=== PATIENT | female | born 1950 | race Caucasian/White ===

== ENCOUNTER 2023-06-21 08:29 | Outpatient (CLI) | payer MEDICARE ==
[2023-06-21 09:35] LABS: #Basophils 0.1 10x3/uL (0.0-0.2); #Eosinphils 0.1 10x3/uL (0.0-0.5); #Monocytes 0.5 10x3/uL (0.0-1.1); #Neutrophils 4.1 10x3/uL (1.5-8.4); %Basophils 1.1 % (0.0-2.0); %Eosinophils 1.7 % (0.0-6.0); %Lymphocytes 24.7 % (18.0-47.0); %Monocytes 8.4 % (0.0-10.0); %Neutrophils 63.6 % (40.0-75.0); Anion Gap 14 mmol/L (10-20); BUN (Urea Nitrogen) 12 mg/dL (9.8-20.1); Calc. Creatinine Clearance 0 mL/min (70-130); Calcium 10.4 mg/dL (7.8-10.44); Carbon Dioxide 25 mmol/L (23-31); Chloride 104 mmol/L (98-107); Estimated GFR 74; Glucose 90 mg/dL (83-110); Hematocrit 38.9 % (34.9-44.5); Hemoglobin 12.8 g/dL (12.0-15.5); Mean Corpuscular HGB CONC 32.9 g/dL (32.0-36.0); Mean Corpuscular Volume 88.2 fl (81.6-98.3); Mean Platelet Volume 9.6 fl (7.4-10.4); Platelet Count 304 10x3/uL (150-450); Potassium 3.7 mmol/L (3.5-5.1); RBC Distribution Width 13.3 % (11.5-14.5); Red Blood Cell (RBC) Count 4.41 10x6/uL (3.90-5.03); Sodium 139 mmol/L (136-145); White Blood Cell (WBC) Count 6.4 10x3/uL (3.5-10.5)
== END 2023-06-21 08:30 | disposition home or self-care (01) ==
LOC: LABBT 08:29
PROVIDERS: ATTEND Surgery
DX: Z01.818 Encounter for other preprocedural examination (principal); K62.0 Anal polyp; K64.4 Residual hemorrhoidal skin tags
CPT/HCPCS: 80048; 85025; 93005; 93010

== ENCOUNTER 2023-06-29 09:23 | Day surgery (SDC) | payer MEDICARE ==
[2023-06-21 08:47] VITALS: BMI 23.1
[2023-06-29] MEDS ORDERED: Bupivacaine 0.25% HCL 30 ML VIAL ONE (11:39)
[2023-06-29] MEDS ORDERED: EPINEPHrine 1 MG/ML AMP ONE (11:39)
[2023-06-29] MEDS ORDERED: Sodium Chloride 0.9% 100 ML ONE (11:48)
[2023-06-29] MEDS ORDERED: cefOXitin 2 GM VIAL ONE (11:48)
[2023-06-29] MEDS ORDERED: fentaNYL PF 100 MCG/2 ML SYRINGE ONE (11:50)
[2023-06-29] MEDS ORDERED: Glycopyrrolate 0.2 MG/ML 5 ML SYRINGE ONE (11:55)
[2023-06-29] MEDS ORDERED: PROPOFOL 200 MG/20 ML VIAL ONE (11:55)
[2023-06-29] MEDS ORDERED: Lidocaine 1% PF 5 ML VIAL ONE (11:55)
[2023-06-29] MEDS ORDERED: HYDROcodone/Acetaminophen 5/325 mg Tablet ONE (13:22)
== END 2023-06-29 14:00 | disposition home or self-care (01) ==
LOC: SDC 09:23
PROVIDERS: ATTEND Surgery
PROC: 06BY0ZC Excision of Hemorrhoidal Plexus, Open Approach (ICD-10-PCS; principal; 2023-06-29)
DX: K64.4 Residual hemorrhoidal skin tags (principal); K64.8 Other hemorrhoids; K62.0 Anal polyp; I10 Essential (primary) hypertension; Z87.891 Personal history of nicotine dependence; Z79.899 Other long term (current) drug therapy; Z90.49 Acquired absence of other specified parts of digestive tract; Z88.0 Allergy status to penicillin
CPT/HCPCS: 88304; J0171; J0694; J2704; J3490; S0020

== ENCOUNTER 2023-06-30 00:16 | Emergency (ER) | payer MEDICARE | END 2023-06-30 01:08 | disposition left against medical advice (07) | LOC: ERS 00:16 | DX: Z53.21 Procedure and treatment not carried out due to patient leaving prior to being seen by health care provider (principal) ==